=== PATIENT | male | born 1935 | race Hispanic/Latino ===

== ENCOUNTER 2020-06-24 23:54 | Inpatient (IN) | payer OTHER ==
[~2020-06-24] VITALS: Ht 157.5 cm; Wt 70.8 kg
[2020-06-25] MEDS ORDERED: DEXAMETHASONE SOD PHOS 10 MG/1 ML VIAL IV ONE (00:15)
[2020-06-25 00:16] LABS: BASOPHILS % 0.1 % (0.0-1.0); EOSINOPHILS % 0.2 % (0.0-6.0); HEMATOCRIT 28.6 % (38.2-49.6); HEMOGLOBIN 9.2 g/dL (14.0-18.0); LYMPHOCYTES # (AUTO) 0.8 (1.0-3.2); LYMPHOCYTES % 4.6 % (18.0-39.1); MEAN CORPUSCULAR HEMOGLOBIN 31.4 pg (28-32); MEAN CORPUSCULAR HGB CONC 32.2 g/dL (31-35); MEAN CORPUSCULAR VOLUME 97.6 fL (81-99); MONOCYTES # (AUTO) 0.3 (0.2-0.8); MONOCYTES % 1.5 % (4.4-11.3); NEUTROPHILS % 90.6 % (38.7-80.0); PLATELET COUNT 202 x10e3/uL (140-360); RED BLOOD COUNT 2.93 x10e6/uL (4.3-5.7); RED CELL DISTRIBUTION WIDTH 13.7 % (11.7-14.4)
[2020-06-25 00:34] LABS: ALBUMIN 2.4 g/dL (3.5-5.0); ALBUMIN/GLOBULIN RATIO 0.5 (0.8-2.0); ANION GAP 20.5 mmol/L (8-16); CALCIUM 8.1 mg/dL (8.4-10.2); CREATININE, SERUM 3.56 mg/dL (0.72-1.25); POTASSIUM 4.5 mmol/L (3.5-5.1)
[2020-06-25] MEDS ORDERED: CARVEDILOL12.5 MG PO (00:34)
[2020-06-25] MEDS ORDERED: OMEPRAZOLE40 MG PO (00:34)
[2020-06-25] MEDS ORDERED: FINASTERIDE5 MG PO (00:34)
[2020-06-25] MEDS ORDERED: FLOMAX0.4 MG PO (00:34)
[2020-06-25] MEDS ORDERED: FUROSEMIDE40 MG PO (00:34)
[2020-06-25] MEDS ORDERED: LOSARTAN POTASS25 MG PO (00:34)
[2020-06-25] MEDS ORDERED: NEURONTIN100 MG PO (00:34)
[2020-06-25] MEDS ORDERED: AMLODIPINE BESYL5 MG PO (00:34)
[2020-06-25] MEDS ORDERED: SIMVASTATIN40 MG PO (00:34)
[2020-06-25] MEDS ORDERED: LEVOTHYROXINE88 MCG PO (00:34)
[2020-06-25 00:38] LABS: B-TYPE NATRIURETIC PEPTIDE2 534.3 pg/mL (0-100)
[2020-06-25] MEDS ORDERED: AZITHROMYCIN 500MG/NS 250 ML 250 ML IV ONE (01:15)
[2020-06-25] MEDS ORDERED: ACETAMINOPHEN 325 MG TAB PO PRN (01:15)
[2020-06-25] MEDS ORDERED: CEFTRIAXONE SOD 1 GM/NS 50 ML 50 ML IV ONE (01:15)
[2020-06-25] MEDS: CEFTRIAXONE SOD 1 GM/NS 50 ML 50 ML IV SCH (01:30)
[2020-06-25] MEDS ORDERED: SODIUM CHLORIDE 0.9% 500ML 500 ML IV ONE (17:00)
[2020-06-25] MEDS: SODIUM BICARBONATE 650 MG TAB PO SCH (17:32)
[2020-06-25 17:47] LABS: CLARITY,URINE HAZY (CLEAR); COLOR,URINE YELLOW (YELLOW); KETONES,URINE NEGATIVE (NEGATIVE); LEUKOCYTE ESTERASE ,URINE SMALL (NEGATIVE); NITRITE,URINE NEGATIVE (NEGATIVE); PROTEIN,URINE DIPSTICK 2+ (NEGATIVE); URINE UROBILINOGEN 0.2 mg/dL (0.2 - 1)
[2020-06-25 17:59] LABS: BACTERIA,URINE MODERATE /HPF; EPITHELIAL CELLS,URINE FEW /LPF
[2020-06-25] MEDS ORDERED: ZOLPIDEM TARTRATE 5 MG TAB PO PRN (21:00)
[2020-06-25 22:00] VITALS: BP 123/58
[2020-06-25 23:00] VITALS: BP 111/75
[2020-06-25 23:13] VITALS: BP 123/58
[2020-06-26] VITALS (25 sets, daily range): BP systolic 84–166; BP diastolic 44–122
[2020-06-26] MEDS: AZITHROMYCIN 500MG/NS 250 ML 250 ML IV SCH ×2 (02:07→22:00)
[2020-06-26 05:09] LABS: BASOPHILS # (AUTO) 0.1 (0.0-0.1); BASOPHILS % 0.3 % (0.0-1.0); EOSINOPHILS # (AUTO) 0.1 (0.0-0.4); EOSINOPHILS % 0.5 % (0.0-6.0); HEMATOCRIT 28.5 % (38.2-49.6); HEMOGLOBIN 9.3 g/dL (14.0-18.0); LYMPHOCYTES # (AUTO) 0.8 (1.0-3.2); LYMPHOCYTES % 3.4 % (18.0-39.1); MEAN CORPUSCULAR HEMOGLOBIN 31.2 pg (28-32); MEAN CORPUSCULAR HGB CONC 32.6 g/dL (31-35); MEAN CORPUSCULAR VOLUME 95.6 fL (81-99); MONOCYTES # (AUTO) 0.6 (0.2-0.8); MONOCYTES % 2.3 % (4.4-11.3); NEUTROPHILS # (AUTO) 21.8 (2.1-6.9); NEUTROPHILS % 91.1 % (38.7-80.0); PLATELET COUNT 269 x10e3/uL (140-360); RED BLOOD COUNT 2.98 x10e6/uL (4.3-5.7); RED CELL DISTRIBUTION WIDTH 13.6 % (11.7-14.4)
[2020-06-26 05:27] LABS: ALBUMIN 2.2 g/dL (3.5-5.0); ALBUMIN/GLOBULIN RATIO 0.5 (0.8-2.0); ANION GAP 19.8 mmol/L (8-16); CALCIUM 8.3 mg/dL (8.4-10.2); POTASSIUM 4.8 mmol/L (3.5-5.1)
[2020-06-26] MEDS: LEVOTHYROXINE SODIUM 88 MCG TAB PO SCH (06:48)
[2020-06-26] MEDS: PANTOPRAZOLE SOD 40 MG TABEC PO SCH (08:07)
[2020-06-26] MEDS: DEXAMETHASONE SOD PHOS 10 MG/1 ML VIAL IV SCH (08:08)
[2020-06-26] MEDS: TAMSULOSIN HCL 0.4 MG CAP PO SCH (08:08)
[2020-06-26] MEDS: FINASTERIDE 5 MG TAB PO SCH (08:09)
[2020-06-26] MEDS: SODIUM BICARBONATE 650 MG TAB PO SCH ×2 (08:09→16:14)
[2020-06-26] MEDS: ENOXAPARIN 30 MG/0.3 ML SYR SC SCH (16:14)
[2020-06-26] MEDS: SODIUM BICARBONATE 8.4% 75 ML in SODIUM CHLORIDE 0.45% 1,000 ML IV SCH (16:14)
[2020-06-26] MEDS: CEFTRIAXONE SOD 1 GM/NS 50 ML 50 ML IV SCH (21:03)
[2020-06-27] VITALS (24 sets, daily range): BP systolic 118–180; BP diastolic 42–92
[2020-06-27] MEDS: SODIUM BICARBONATE 8.4% 75 ML in SODIUM CHLORIDE 0.45% 1,000 ML IV SCH ×2 (05:20→19:40)
[2020-06-27] MEDS: LEVOTHYROXINE SODIUM 88 MCG TAB PO SCH (06:00)
[2020-06-27] MEDS: FINASTERIDE 5 MG TAB PO SCH (08:05)
[2020-06-27] MEDS: TAMSULOSIN HCL 0.4 MG CAP PO SCH (08:05)
[2020-06-27] MEDS: PANTOPRAZOLE SOD 40 MG TABEC PO SCH (08:05)
[2020-06-27] MEDS: DEXAMETHASONE SOD PHOS 10 MG/1 ML VIAL IV SCH (08:05)
[2020-06-27] MEDS: SODIUM BICARBONATE 650 MG TAB PO SCH ×2 (08:05→15:11)
[2020-06-27 09:48] LABS: ABG HCO3 18 mmol/L (22-26); ABG PCO2 23 mmHg (35-45); ABG PH 7.51 (7.35-7.45); ABG PO2 56 mmHg (80-105); ABG TCO2 19
[2020-06-27] MEDS ORDERED: ZIPRASIDONE 20 MG VIAL IM NR (10:45)
[2020-06-27 11:41] LABS: BASOPHILS # (AUTO) 0.1 (0.0-0.1); BASOPHILS % 0.2 % (0.0-1.0); EOSINOPHILS # (AUTO) 0.1 (0.0-0.4); EOSINOPHILS % 0.6 % (0.0-6.0); HEMATOCRIT 30.6 % (38.2-49.6); HEMOGLOBIN 9.7 g/dL (14.0-18.0); LYMPHOCYTES # (AUTO) 0.5 (1.0-3.2); LYMPHOCYTES % 2.3 % (18.0-39.1); MEAN CORPUSCULAR HEMOGLOBIN 31.2 pg (28-32); MEAN CORPUSCULAR HGB CONC 31.7 g/dL (31-35); MEAN CORPUSCULAR VOLUME 98.4 fL (81-99); MONOCYTES # (AUTO) 0.8 (0.2-0.8); MONOCYTES % 3.7 % (4.4-11.3); PLATELET COUNT 308 x10e3/uL (140-360); RED BLOOD COUNT 3.11 x10e6/uL (4.3-5.7); RED CELL DISTRIBUTION WIDTH 13.7 % (11.7-14.4)
[2020-06-27 12:01] LABS: ALBUMIN 2.1 g/dL (3.5-5.0); ALBUMIN/GLOBULIN RATIO 0.4 (0.8-2.0); ANION GAP 19.6 mmol/L (8-16); CALCIUM 8.4 mg/dL (8.4-10.2); CREATININE, SERUM 2.52 mg/dL (0.72-1.25); POTASSIUM 4.6 mmol/L (3.5-5.1)
[2020-06-27] MEDS ORDERED: LORAZEPAM INJ 2 MG/ML VIAL IV NR (14:15)
[2020-06-27] MEDS ORDERED: DEXTROSE 5% 1,000 ML IV ONE (14:45)
[2020-06-27] MEDS: DEXMEDETOMIDINE HCL 200 MCG in SODIUM CHLORIDE 0.9% 50ML 48 ML IV SCH (14:48)
[2020-06-27] MEDS: ENOXAPARIN 30 MG/0.3 ML SYR SC SCH (15:11)
[2020-06-27] MEDS: CEFTRIAXONE SOD 1 GM/NS 50 ML 50 ML IV SCH (21:00)
[2020-06-27] MEDS: AZITHROMYCIN 500MG/NS 250 ML 250 ML IV SCH (22:10)
[2020-06-28] VITALS (25 sets, daily range): BP systolic 91–178; BP diastolic 42–98
[2020-06-28 05:09] LABS: BASOPHILS % 0.2 % (0.0-1.0); EOSINOPHILS # (AUTO) 0.1 (0.0-0.4); EOSINOPHILS % 0.4 % (0.0-6.0); HEMATOCRIT 30.7 % (38.2-49.6); HEMOGLOBIN 9.8 g/dL (14.0-18.0); LYMPHOCYTES # (AUTO) 0.6 (1.0-3.2); LYMPHOCYTES % 3.3 % (18.0-39.1); MEAN CORPUSCULAR HEMOGLOBIN 32.2 pg (28-32); MEAN CORPUSCULAR HGB CONC 31.9 g/dL (31-35); MONOCYTES # (AUTO) 0.7 (0.2-0.8); MONOCYTES % 3.9 % (4.4-11.3); NEUTROPHILS # (AUTO) 16.2 (2.1-6.9); NEUTROPHILS % 89.1 % (38.7-80.0); PLATELET COUNT 286 x10e3/uL (140-360); RED BLOOD COUNT 3.04 x10e6/uL (4.3-5.7); RED CELL DISTRIBUTION WIDTH 13.6 % (11.7-14.4)
[2020-06-28 05:39] LABS: ALBUMIN 2.1 g/dL (3.5-5.0); ALBUMIN/GLOBULIN RATIO 0.5 (0.8-2.0); ANION GAP 18.2 mmol/L (8-16); CALCIUM 8.3 mg/dL (8.4-10.2); CREATININE, SERUM 2.43 mg/dL (0.72-1.25); POTASSIUM 4.2 mmol/L (3.5-5.1)
[2020-06-28] MEDS: LEVOTHYROXINE SODIUM 88 MCG TAB PO SCH (06:00)
[2020-06-28] MEDS: PANTOPRAZOLE SOD 40 MG TABEC PO SCH (07:30)
[2020-06-28 08:48] LABS: ABG HCO3 18 mmol/L (22-26); ABG PCO2 29 mmHg (35-45); ABG PH 7.41 (7.35-7.45); ABG PO2 59 mmHg (80-105); ABG TCO2 19
[2020-06-28] MEDS: TAMSULOSIN HCL 0.4 MG CAP PO SCH (09:00)
[2020-06-28] MEDS: SODIUM BICARBONATE 650 MG TAB PO SCH ×2 (09:00→16:33)
[2020-06-28] MEDS: FINASTERIDE 5 MG TAB PO SCH (09:00)
[2020-06-28] MEDS: DEXAMETHASONE SOD PHOS 10 MG/1 ML VIAL IV SCH (09:56)
[2020-06-28] MEDS ORDERED: DEXTROSE 5% 1,000 ML IV ONE ×2 (11:00→22:41)
[2020-06-28] MEDS ORDERED: PIPERACILLIN/TAZO 2.25 GM 50 ML IV ONE (11:20)
[2020-06-28] MEDS: DEXMEDETOMIDINE HCL 200 MCG in SODIUM CHLORIDE 0.9% 50ML 48 ML IV SCH (13:42)
[2020-06-28] MEDS: PIPERACILLIN/TAZO 2.25 GM 50 ML IV SCH ×2 (13:42→22:30)
[2020-06-28] MEDS ORDERED: LORAZEPAM INJ 2 MG/ML VIAL ONE (15:51)
[2020-06-28] MEDS ORDERED: HALOPERIDOL LACTATE 5 MG/ML VIAL ONE (15:55)
[2020-06-28] MEDS: ENOXAPARIN 30 MG/0.3 ML SYR SC SCH (16:00)
[2020-06-28] MEDS ORDERED: HALOPERIDOL LACTATE 5 MG/ML VIAL IV ONE (16:45)
[2020-06-28] MEDS ORDERED: LORAZEPAM INJ 2 MG/ML VIAL IV ONE (16:45)
[2020-06-28] MEDS ORDERED: HEPARIN SOD (PORCINE) 1000 UNIT/ML SDV ONE (22:41)
[2020-06-28] MEDS ORDERED: SODIUM CHLORIDE 0.9% 1000ML 2,000 ML ONE (22:41)
[2020-06-29] VITALS (25 sets, daily range): BP systolic 102–179; BP diastolic 30–104
[2020-06-29] MEDS ORDERED: MANNITOL 25% 12.5GM/50ML 100 ML ONE (00:07)
[2020-06-29] MEDS: PIPERACILLIN/TAZO 2.25 GM 50 ML IV SCH ×3 (06:10→22:10)
[2020-06-29] MEDS: LEVOTHYROXINE SODIUM 88 MCG TAB PO SCH (06:10)
[2020-06-29] MEDS ORDERED: HEPARIN SOD (PORCINE) 1000 UNIT/ML SDV IV PRN (07:00)
[2020-06-29] MEDS ORDERED: MANNITOL 25% 12.5GM/50 ML VIAL IV PRN (07:00)
[2020-06-29] MEDS ORDERED: SODIUM CHLORIDE 0.9% 1000ML 2,000 ML IV PRN (07:00)
[2020-06-29] MEDS: PANTOPRAZOLE SOD 40 MG TABEC PO SCH (07:30)
[2020-06-29] MEDS: SODIUM BICARBONATE 650 MG TAB PO SCH (09:00)
[2020-06-29] MEDS: FINASTERIDE 5 MG TAB PO SCH (09:00)
[2020-06-29] MEDS: TAMSULOSIN HCL 0.4 MG CAP PO SCH (09:00)
[2020-06-29] MEDS: DEXAMETHASONE SOD PHOS 10 MG/1 ML VIAL IV SCH (10:00)
[2020-06-29 11:12] LABS: BASOPHILS # (AUTO) 0.1 (0.0-0.1); BASOPHILS % 0.3 % (0.0-1.0); EOSINOPHILS # (AUTO) 0.1 (0.0-0.4); EOSINOPHILS % 0.2 % (0.0-6.0); HEMATOCRIT 30.6 % (38.2-49.6); HEMOGLOBIN 9.8 g/dL (14.0-18.0); LYMPHOCYTES # (AUTO) 0.4 (1.0-3.2); LYMPHOCYTES % 1.5 % (18.0-39.1); MEAN CORPUSCULAR HEMOGLOBIN 31.1 pg (28-32); MONOCYTES # (AUTO) 0.7 (0.2-0.8); MONOCYTES % 2.8 % (4.4-11.3); NEUTROPHILS # (AUTO) 24.2 (2.1-6.9); NEUTROPHILS % 92.7 % (38.7-80.0); PLATELET COUNT 290 x10e3/uL (140-360); RED BLOOD COUNT 3.15 x10e6/uL (4.3-5.7); RED CELL DISTRIBUTION WIDTH 13.5 % (11.7-14.4)
[2020-06-29 11:24] LABS: MEAN CORPUSCULAR VOLUME 97.1 fL (81-99)
[2020-06-29 11:39] LABS: ALBUMIN/GLOBULIN RATIO 0.5 (0.8-2.0); ANION GAP 14.4 mmol/L (8-16); CALCIUM 7.5 mg/dL (8.4-10.2); CREATININE, SERUM 2.08 mg/dL (0.72-1.25); POTASSIUM 4.4 mmol/L (3.5-5.1)
[2020-06-29] MEDS: DEXMEDETOMIDINE HCL 200 MCG in SODIUM CHLORIDE 0.9% 50ML 48 ML IV SCH (14:15)
[2020-06-29] MEDS: PANTOPRAZOLE 40 MG 10ML VIAL IV SCH (14:29)
[2020-06-29] MEDS ORDERED: CALCIUM CHLORIDE 13.6 MEQ in SODIUM CHLORIDE 0.9% 100 ML 100 ML IV ONE (16:00)
[2020-06-29] MEDS: ENOXAPARIN 30 MG/0.3 ML SYR SC SCH (17:37)
[2020-06-29] MEDS ORDERED: DEXTROSE 5% 1,000 ML IV ONE (18:06)
[2020-06-29] MEDS ORDERED: AMIODARONE HCL 360MG 200 ML IV SCH (18:30)
[2020-06-29] MEDS ORDERED: AMIODARONE HCL 150MG 100 ML IV SCH (18:30)
[2020-06-29] MEDS ORDERED: AMIODARONE HCL 150 MG in DEXTROSE 5% 100ML 100 ML IV SCH (18:45)
[2020-06-29] MEDS: AMIODARONE 900MG 500 ML IV SCH (19:08)
[2020-06-30] VITALS (24 sets, daily range): BP systolic 105–159; BP diastolic 35–87
[2020-06-30] MEDS ORDERED: AMIODARONE HCL 360MG 200 ML IV SCH
[2020-06-30 05:51] LABS: BASOPHILS # (AUTO) 0.1 (0.0-0.1); BASOPHILS % 0.2 % (0.0-1.0); HEMATOCRIT 29.3 % (38.2-49.6); HEMOGLOBIN 9.6 g/dL (14.0-18.0); LYMPHOCYTES # (AUTO) 0.5 (1.0-3.2); LYMPHOCYTES % 1.7 % (18.0-39.1); MEAN CORPUSCULAR HEMOGLOBIN 31.9 pg (28-32); MEAN CORPUSCULAR HGB CONC 32.8 g/dL (31-35); MEAN CORPUSCULAR VOLUME 97.3 fL (81-99); MONOCYTES # (AUTO) 0.6 (0.2-0.8); MONOCYTES % 1.9 % (4.4-11.3); PLATELET COUNT 212 x10e3/uL (140-360); RED BLOOD COUNT 3.01 x10e6/uL (4.3-5.7); RED CELL DISTRIBUTION WIDTH 13.2 % (11.7-14.4)
[2020-06-30] MEDS: PIPERACILLIN/TAZO 2.25 GM 50 ML IV SCH ×2 (06:10→13:29)
[2020-06-30] MEDS ORDERED: DEXTROSE 5% 1,000 ML IV ONE (06:17)
[2020-06-30 06:25] LABS: ALBUMIN 1.7 g/dL (3.5-5.0); ALBUMIN/GLOBULIN RATIO 0.4 (0.8-2.0); ANION GAP 16.1 mmol/L (8-16); CREATININE, SERUM 1.54 mg/dL (0.72-1.25); POTASSIUM 4.1 mmol/L (3.5-5.1)
[2020-06-30 06:38] LABS: INR 1.12; PROTHROMBIN TIME 15.1 seconds (11.9-14.5)
[2020-06-30 06:39] LABS: PARTIAL THROMBOPLASTIN TIME 34.2 seconds (23.8-35.5)
[2020-06-30 07:30] LABS: CALCIUM 6.8 mg/dL (8.4-10.2)
[2020-06-30 08:16] LABS: BAND NEUTROPHILS % (MANUAL) 1 %; LYMPHOCYTES % (MANUAL) 1 % (19-48); MONOCYTES % (MANUAL) 1 % (3.4-9.0); NEUTROPHILS % (MANUAL) 97 % (40-74)
[2020-06-30] MEDS: DEXAMETHASONE SOD PHOS 10 MG/1 ML VIAL IV SCH (08:32)
[2020-06-30] MEDS: PANTOPRAZOLE 40 MG 10ML VIAL IV SCH (08:32)
[2020-06-30] MEDS: LEVOTHYROXINE SODIUM 100 MCG/VIAL IV SCH (08:32)
[2020-06-30] MEDS: AMIODARONE 900MG 500 ML IV SCH ×2 (09:40→18:20)
[2020-06-30] MEDS ORDERED: HEPARIN 25,000 UNIT 25,000 UNIT in DEXTROSE 5% 250ML 250 ML IV SCH (10:00)
[2020-06-30] MEDS ORDERED: LIDOCAINE HCL 1% LOCAL INJ 20 ML VIAL ONE (12:56)
[2020-06-30] MEDS: DEXMEDETOMIDINE HCL 200 MCG in SODIUM CHLORIDE 0.9% 50ML 48 ML IV SCH (14:15)
[2020-06-30] MEDS ORDERED: CALCIUM CHLORIDE 13.6 MEQ in SODIUM CHLORIDE 0.9% 100 ML 100 ML IV ONE ×2 (15:15→21:00)
[2020-06-30] MEDS: HEPARIN 25,000 UNIT 700 UNIT in DEXTROSE 5% 250ML 250 ML IV SCH (21:42)
[2020-07-01] VITALS (22 sets, daily range): BP systolic 94–150; BP diastolic 24–74
[2020-07-01] MEDS: PIPERACILLIN/TAZO 2.25 GM 50 ML IV SCH ×3 (01:16→13:05)
[2020-07-01 05:04] LABS: BASOPHILS # (AUTO) 0.1 (0.0-0.1); BASOPHILS % 0.4 % (0.0-1.0); HEMATOCRIT 29.8 % (38.2-49.6); HEMOGLOBIN 9.6 g/dL (14.0-18.0); LYMPHOCYTES # (AUTO) 0.5 (1.0-3.2); LYMPHOCYTES % 1.5 % (18.0-39.1); MEAN CORPUSCULAR HEMOGLOBIN 30.7 pg (28-32); MEAN CORPUSCULAR HGB CONC 32.2 g/dL (31-35); MEAN CORPUSCULAR VOLUME 95.2 fL (81-99); MONOCYTES % 2.7 % (4.4-11.3); NEUTROPHILS # (AUTO) 33.7 (2.1-6.9); NEUTROPHILS % 92.8 % (38.7-80.0); PLATELET COUNT 238 x10e3/uL (140-360); RED BLOOD COUNT 3.13 x10e6/uL (4.3-5.7); RED CELL DISTRIBUTION WIDTH 13.3 % (11.7-14.4)
[2020-07-01 05:24] LABS: INR 1.19; PROTHROMBIN TIME 15.9 seconds (11.9-14.5)
[2020-07-01 05:29] LABS: ALBUMIN 1.6 g/dL (3.5-5.0); ALBUMIN/GLOBULIN RATIO 0.4 (0.8-2.0); ANION GAP 20.5 mmol/L (8-16); CREATININE, SERUM 2.55 mg/dL (0.72-1.25); MAGNESIUM 1.7 MG/DL (1.3-2.1); PHOSPHORUS 4.9 MG/DL (2.3-4.7); POTASSIUM 4.5 mmol/L (3.5-5.1)
[2020-07-01 05:32] LABS: CALCIUM 6.4 mg/dL (8.4-10.2)
[2020-07-01 07:10] LABS: LYMPHOCYTES % (MANUAL) 1 % (19-48); MONOCYTES % (MANUAL) 4 % (3.4-9.0); NEUTROPHILS % (MANUAL) 95 % (40-74)
[2020-07-01 07:11] LABS: PLATELET ESTIMATE ADEQUATE; PLATELET MORPHOLOGY COMMENT NORMAL; RBC MORPHOLOGY COMMENT NORMAL
[2020-07-01] MEDS: LEVOTHYROXINE SODIUM 100 MCG/VIAL IV SCH (10:03)
[2020-07-01] MEDS: DEXAMETHASONE SOD PHOS 10 MG/1 ML VIAL IV SCH (10:03)
[2020-07-01] MEDS: PANTOPRAZOLE 40 MG 10ML VIAL IV SCH (10:03)
[2020-07-01] MEDS ORDERED: SODIUM CHLORIDE 0.9% 1000ML 1,000 ML IV ONE (10:15)
[2020-07-01] MEDS: DEXMEDETOMIDINE HCL 200 MCG in SODIUM CHLORIDE 0.9% 50ML 48 ML IV SCH (14:15)
[2020-07-01] MEDS ORDERED: CALCIUM CHLORIDE 13.6 MEQ in SODIUM CHLORIDE 0.9% 100 ML 100 ML IV ONE ×2 (14:30→21:00)
[2020-07-01] MEDS ORDERED: HEPARIN 25,000 UNIT 900 UNIT in DEXTROSE 5% 250ML 250 ML IV SCH (15:00)
[2020-07-01] MEDS ORDERED: HEPARIN 25,000 UNIT 700 UNIT in DEXTROSE 5% 250ML 250 ML IV SCH (15:00)
[2020-07-01] MEDS: AMIODARONE 900MG 500 ML IV SCH (16:00)
[2020-07-01] MEDS: HEPARIN 25,000 UNIT 700 UNIT in DEXTROSE 5% 250ML 250 ML IV SCH (20:00)
[2020-07-01 20:15] LABS: ABG HCO3 17 mmol/L (22-26); ABG PCO2 25 mmHg (35-45); ABG PH 7.43 (7.35-7.45); ABG PO2 63 mmHg (80-105); ABG TCO2 17
[2020-07-01] MEDS ORDERED: IOPAMIDOL 370 MG/ML 200 ML INFUS..BTL INJ ONE (21:11)
[2020-07-01] MEDS ORDERED: SODIUM CHLORIDE 0.9% 50ML 50 ML ONE (21:11)
[2020-07-02] VITALS (23 sets, daily range): BP systolic 85–146; BP diastolic 21–61
[2020-07-02] MEDS: HEPARIN 25,000 UNIT 700 UNIT in DEXTROSE 5% 250ML 250 ML IV SCH (00:16)
[2020-07-02] MEDS: PIPERACILLIN/TAZO 2.25 GM 50 ML IV SCH ×4 (01:01→21:57)
[2020-07-02] MEDS: PANTOPRAZOLE 40 MG 10ML VIAL IV SCH ×2 (01:30→14:23)
[2020-07-02] MEDS: AMIODARONE 900MG 500 ML IV SCH (02:23)
[2020-07-02] MEDS ORDERED: HYDROMORPHONE 20MG/ NS 100ML IV PRN (03:30)
[2020-07-02] MEDS ORDERED: HYDROMORPHONE 1MG/1ML INJ ONE (03:41)
[2020-07-02 05:55] LABS: BASOPHILS # (AUTO) 0.1 (0.0-0.1); BASOPHILS % 0.3 % (0.0-1.0); HEMATOCRIT 25.7 % (38.2-49.6); HEMOGLOBIN 8.3 g/dL (14.0-18.0); LYMPHOCYTES # (AUTO) 0.4 (1.0-3.2); LYMPHOCYTES % 1.3 % (18.0-39.1); MEAN CORPUSCULAR HEMOGLOBIN 31.9 pg (28-32); MEAN CORPUSCULAR HGB CONC 32.3 g/dL (31-35); MEAN CORPUSCULAR VOLUME 98.8 fL (81-99); MONOCYTES % 3.5 % (4.4-11.3); NEUTROPHILS # (AUTO) 27.2 (2.1-6.9); NEUTROPHILS % 91.7 % (38.7-80.0); PLATELET COUNT 203 x10e3/uL (140-360); RED CELL DISTRIBUTION WIDTH 13.5 % (11.7-14.4)
[2020-07-02 06:18] LABS: ALBUMIN 1.3 g/dL (3.5-5.0); ALBUMIN/GLOBULIN RATIO 0.4 (0.8-2.0); ANION GAP 16.8 mmol/L (8-16); CALCIUM 7.1 mg/dL (8.4-10.2); CREATININE, SERUM 2.44 mg/dL (0.72-1.25); POTASSIUM 4.8 mmol/L (3.5-5.1)
[2020-07-02 06:19] LABS: AMYLASE 181 U/L (25-125); LIPASE 42 U/L (8-78)
[2020-07-02] MEDS: METOCLOPRAMIDE HCL 10 MG/2ML VIAL IV SCH ×3 (06:36→17:23)
[2020-07-02 08:24] LABS: INR 1.19; PROTHROMBIN TIME 15.9 seconds (11.9-14.5)
[2020-07-02 08:25] LABS: PARTIAL THROMBOPLASTIN TIME 60.4 seconds (23.8-35.5)
[2020-07-02] MEDS: AMIODARONE HCL 200 MG TAB PO SCH ×2 (09:00→09:40)
[2020-07-02] MEDS: DEXAMETHASONE SOD PHOS 10 MG/1 ML VIAL IV SCH (09:36)
[2020-07-02] MEDS: LEVOTHYROXINE SODIUM 100 MCG/VIAL IV SCH (09:36)
[2020-07-02] MEDS ORDERED: HYDROMORPHONE 1MG/1ML INJ IV PRN (10:45)
[2020-07-02] MEDS: DEXMEDETOMIDINE HCL 200 MCG in SODIUM CHLORIDE 0.9% 50ML 48 ML IV SCH (14:15)
[2020-07-02] MEDS ORDERED: CALCIUM CHLORIDE 13.6 MEQ in SODIUM CHLORIDE 0.9% 100 ML 100 ML IV ONE ×2 (16:15→21:00)
[2020-07-03] VITALS (26 sets, daily range): BP systolic 103–140; BP diastolic 27–58
[2020-07-03] MEDS: METOCLOPRAMIDE HCL 10 MG/2ML VIAL IV SCH ×3 (00:30→12:32)
[2020-07-03] MEDS: PANTOPRAZOLE 40 MG 10ML VIAL IV SCH ×2 (01:30→12:32)
[2020-07-03 05:05] LABS: BASOPHILS # (AUTO) 0.1 (0.0-0.1); BASOPHILS % 0.4 % (0.0-1.0); HEMATOCRIT 24.8 % (38.2-49.6); HEMOGLOBIN 7.9 g/dL (14.0-18.0); LYMPHOCYTES # (AUTO) 0.4 (1.0-3.2); LYMPHOCYTES % 1.3 % (18.0-39.1); MEAN CORPUSCULAR HEMOGLOBIN 31.1 pg (28-32); MEAN CORPUSCULAR HGB CONC 31.9 g/dL (31-35); MEAN CORPUSCULAR VOLUME 97.6 fL (81-99); MONOCYTES # (AUTO) 1.5 (0.2-0.8); MONOCYTES % 5.2 % (4.4-11.3); NEUTROPHILS # (AUTO) 25.9 (2.1-6.9); NEUTROPHILS % 90.7 % (38.7-80.0); PLATELET COUNT 289 x10e3/uL (140-360); RED BLOOD COUNT 2.54 x10e6/uL (4.3-5.7); RED CELL DISTRIBUTION WIDTH 13.7 % (11.7-14.4)
[2020-07-03 05:21] LABS: ALBUMIN 1.4 g/dL (3.5-5.0); ALBUMIN/GLOBULIN RATIO 0.4 (0.8-2.0); ANION GAP 20.3 mmol/L (8-16); CALCIUM 7.1 mg/dL (8.4-10.2); CREATININE, SERUM 3.43 mg/dL (0.72-1.25); POTASSIUM 5.3 mmol/L (3.5-5.1)
[2020-07-03 05:23] LABS: PHOSPHORUS 8.4 MG/DL (2.3-4.7)
[2020-07-03 05:37] LABS: % IRON SATURATION 18 % (15-50); AMYLASE 109 U/L (25-125); IRON 22 ug/dL (65-175); LIPASE 23 U/L (8-78); TOTAL IRON BINDING CAPACITY 125 ug/dL (261-478); TRANSFERRIN 89 mg/dL (174-364)
[2020-07-03] MEDS: PIPERACILLIN/TAZO 2.25 GM 50 ML IV SCH ×3 (06:16→21:34)
[2020-07-03] MEDS: LEVOTHYROXINE SODIUM 100 MCG/VIAL IV SCH (09:36)
[2020-07-03 09:55] LABS: ABG HCO3 16 mmol/L (22-26); ABG PCO2 29 mmHg (35-45); ABG PH 7.35 (7.35-7.45); ABG PO2 65 mmHg (80-105); ABG TCO2 17
[2020-07-03] MEDS: AMIODARONE HCL 900 MG in DEXTROSE 5% 500ML 500 ML IV SCH (10:17)
[2020-07-03] MEDS: DEXMEDETOMIDINE HCL 200 MCG in SODIUM CHLORIDE 0.9% 50ML 48 ML IV SCH (11:56)
[2020-07-04] VITALS (24 sets, daily range): BP systolic 78–146; BP diastolic 21–77
[2020-07-04] MEDS: PANTOPRAZOLE 40 MG 10ML VIAL IV SCH ×2 (01:24→13:17)
[2020-07-04 06:04] LABS: BASOPHILS # (AUTO) 0.1 (0.0-0.1); BASOPHILS % 0.4 % (0.0-1.0); EOSINOPHILS % 0.1 % (0.0-6.0); HEMOGLOBIN 7.8 g/dL (14.0-18.0); LYMPHOCYTES # (AUTO) 0.4 (1.0-3.2); LYMPHOCYTES % 1.7 % (18.0-39.1); MEAN CORPUSCULAR HEMOGLOBIN 30.5 pg (28-32); MEAN CORPUSCULAR HGB CONC 31.2 g/dL (31-35); MEAN CORPUSCULAR VOLUME 97.7 fL (81-99); MONOCYTES # (AUTO) 1.3 (0.2-0.8); MONOCYTES % 5.4 % (4.4-11.3); NEUTROPHILS # (AUTO) 21.8 (2.1-6.9); NEUTROPHILS % 89.6 % (38.7-80.0); PLATELET COUNT 291 x10e3/uL (140-360); RED BLOOD COUNT 2.56 x10e6/uL (4.3-5.7); RED CELL DISTRIBUTION WIDTH 13.7 % (11.7-14.4)
[2020-07-04] MEDS: PIPERACILLIN/TAZO 2.25 GM 50 ML IV SCH ×3 (06:05→22:13)
[2020-07-04 06:24] LABS: ALBUMIN 1.3 g/dL (3.5-5.0); ALBUMIN/GLOBULIN RATIO 0.3 (0.8-2.0); ANION GAP 20.2 mmol/L (8-16); CALCIUM 7.1 mg/dL (8.4-10.2); CREATININE, SERUM 2.49 mg/dL (0.72-1.25); POTASSIUM 4.2 mmol/L (3.5-5.1)
[2020-07-04 06:40] LABS: AMYLASE 101 U/L (25-125); LIPASE 20 U/L (8-78)
[2020-07-04] MEDS: LEVOTHYROXINE SODIUM 100 MCG/VIAL IV SCH (08:26)
[2020-07-04] MEDS: AMIODARONE HCL 900 MG in DEXTROSE 5% 500ML 500 ML IV SCH (09:00)
[2020-07-04] MEDS: IRON SUCROSE 100 MG in SODIUM CHLORIDE 0.9% 100 ML 100 ML IV SCH (09:21)
[2020-07-04] MEDS ORDERED: MIDAZOLAM HCL 5MG/ML 10ML VIAL 100 ML BAG IV ONE (10:29)
[2020-07-04] MEDS ORDERED: FENTANYL 2,000 MCG/250 ML BAG ONE (10:29)
[2020-07-04] MEDS ORDERED: ENOXAPARIN 30 MG/0.3 ML SYR SC SCH (17:00)
[2020-07-04] MEDS: FENTANYL 2000MCG/NS 250 250 ML IV SCH (18:45)
[2020-07-04] MEDS ORDERED: MIDAZOLAM HCL 5MG/ML 10ML VIAL 100 ML IV PRN (18:45)
[2020-07-04] MEDS: CENTRAL TPN FORMULA 1 BAG IV SCH (20:00)
[2020-07-04] MEDS ORDERED: ALBUMIN 25% 25GM 100ML 0.25 GM/ML BTL IV ONE (21:30)
[2020-07-04] MEDS ORDERED: NOREPINEPHRINE INJ 4MG/4ML 8 MG in DEXTROSE 5% 250ML 250 ML IV PRN (21:30)
[2020-07-04 21:46] LABS: ABG HCO3 22 mmol/L (22-26); ABG PCO2 39 mmHg (35-45); ABG PH 7.35 (7.35-7.45); ABG PO2 77 mmHg (80-105); ABG TCO2 23
[2020-07-05] VITALS (19 sets, daily range): BP systolic 91–133; BP diastolic 44–68
[2020-07-05] MEDS: PANTOPRAZOLE 40 MG 10ML VIAL IV SCH ×2 (01:07→14:42)
[2020-07-05] MEDS: PIPERACILLIN/TAZO 2.25 GM 50 ML IV SCH ×3 (05:47→22:32)
[2020-07-05 06:14] LABS: BASOPHILS % 0.2 % (0.0-1.0); EOSINOPHILS % 0.2 % (0.0-6.0); LYMPHOCYTES # (AUTO) 0.5 (1.0-3.2); LYMPHOCYTES % 2.6 % (18.0-39.1); MEAN CORPUSCULAR HEMOGLOBIN 30.5 pg (28-32); MEAN CORPUSCULAR HGB CONC 29.8 g/dL (31-35); MEAN CORPUSCULAR VOLUME 102.3 fL (81-99); MONOCYTES # (AUTO) 0.9 (0.2-0.8); MONOCYTES % 4.8 % (4.4-11.3); NEUTROPHILS # (AUTO) 16.8 (2.1-6.9); NEUTROPHILS % 90.2 % (38.7-80.0); PLATELET COUNT 258 x10e3/uL (140-360); RED BLOOD COUNT 2.13 x10e6/uL (4.3-5.7); RED CELL DISTRIBUTION WIDTH 14.1 % (11.7-14.4)
[2020-07-05 06:27] LABS: HEMOGLOBIN 6.5 g/dL (14.0-18.0)
[2020-07-05 06:28] LABS: HEMATOCRIT 21.8 % (38.2-49.6)
[2020-07-05 06:37] LABS: ALBUMIN 2.2 g/dL (3.5-5.0); ALBUMIN/GLOBULIN RATIO 0.7 (0.8-2.0); ANION GAP 20.7 mmol/L (8-16); CALCIUM 7.5 mg/dL (8.4-10.2); CREATININE, SERUM 3.63 mg/dL (0.72-1.25); POTASSIUM 4.7 mmol/L (3.5-5.1)
[2020-07-05] MEDS ORDERED: SODIUM CHLORIDE 0.9% 250ML 250 ML IV ONE (07:00)
[2020-07-05] MEDS: AMIODARONE HCL 900 MG in DEXTROSE 5% 500ML 500 ML IV SCH (09:00)
[2020-07-05] MEDS: IRON SUCROSE 100 MG in SODIUM CHLORIDE 0.9% 100 ML 100 ML IV SCH (09:16)
[2020-07-05] MEDS: LEVOTHYROXINE SODIUM 100 MCG/VIAL IV SCH (10:42)
[2020-07-05] MEDS ORDERED: ALBUMIN 25% 25GM 100ML 0.25 GM/ML BTL IV ONE (12:15)
[2020-07-05] MEDS: FENTANYL 2000MCG/NS 250 250 ML IV SCH (18:45)
[2020-07-05] MEDS: CENTRAL TPN FORMULA 1 BAG IV SCH (20:15)
[2020-07-06] VITALS (21 sets, daily range): BP systolic 66–138; BP diastolic 38–80
[2020-07-06] MEDS: PANTOPRAZOLE 40 MG 10ML VIAL IV SCH ×2 (01:02→12:52)
[2020-07-06] MEDS: AMIODARONE HCL 900 MG in DEXTROSE 5% 500ML 500 ML IV SCH (01:50)
[2020-07-06 05:37] LABS: BASOPHILS # (AUTO) 0.1 (0.0-0.1); BASOPHILS % 0.4 % (0.0-1.0); EOSINOPHILS % 0.2 % (0.0-6.0); HEMOGLOBIN 8.5 g/dL (14.0-18.0); LYMPHOCYTES # (AUTO) 0.3 (1.0-3.2); LYMPHOCYTES % 1.8 % (18.0-39.1); MEAN CORPUSCULAR HEMOGLOBIN 29.9 pg (28-32); MEAN CORPUSCULAR HGB CONC 31.5 g/dL (31-35); MEAN CORPUSCULAR VOLUME 95.1 fL (81-99); MONOCYTES # (AUTO) 0.6 (0.2-0.8); NEUTROPHILS # (AUTO) 17.3 (2.1-6.9); NEUTROPHILS % 92.5 % (38.7-80.0); PLATELET COUNT 250 x10e3/uL (140-360); RED BLOOD COUNT 2.84 x10e6/uL (4.3-5.7); RED CELL DISTRIBUTION WIDTH 16.1 % (11.7-14.4)
[2020-07-06] MEDS: LEVOTHYROXINE SODIUM 100 MCG/VIAL IV SCH (05:51)
[2020-07-06] MEDS: PIPERACILLIN/TAZO 2.25 GM 50 ML IV SCH ×3 (05:51→22:11)
[2020-07-06 06:18] LABS: ALBUMIN 2.5 g/dL (3.5-5.0); ALBUMIN/GLOBULIN RATIO 0.8 (0.8-2.0); ANION GAP 18.4 mmol/L (8-16); CREATININE, SERUM 2.28 mg/dL (0.72-1.25); POTASSIUM 3.4 mmol/L (3.5-5.1)
[2020-07-06] MEDS: IRON SUCROSE 100 MG in SODIUM CHLORIDE 0.9% 100 ML 100 ML IV SCH (09:43)
[2020-07-06 15:48] LABS: ABG PCO2 82 mmHg (35-45); ABG PH 7.17 (7.35-7.45)
[2020-07-06 15:49] LABS: ABG HCO3 30 mmol/L (22-26); ABG PO2 48 mmHg (80-105); ABG TCO2 32
[2020-07-06] MEDS ORDERED: VASOPRESSIN 60 UNIT in DEXTROSE 5% 50ML 57 ML IV SCH (16:15)
[2020-07-06] MEDS: FENTANYL 2000MCG/NS 250 250 ML IV SCH (18:45)
[2020-07-06] MEDS ORDERED: PHENYLEPHRINE 10MG/ML VIAL 40 MG in DEXTROSE 5% 250ML 246 ML IV SCH (19:30)
[2020-07-06] MEDS: CENTRAL TPN FORMULA 1 BAG IV SCH (20:00)
[2020-07-06] MEDS: DOBUtamine HCL 500MG/D5W 250ML 250 ML IV SCH (20:42)
[2020-07-07] VITALS (20 sets, daily range): BP systolic 75–131; BP diastolic 39–65
[2020-07-07] MEDS: PANTOPRAZOLE 40 MG 10ML VIAL IV SCH ×2 (01:12→14:02)
[2020-07-07] MEDS: DOBUtamine HCL 500MG/D5W 250ML 250 ML IV SCH ×2 (01:13→06:42)
[2020-07-07] MEDS: PIPERACILLIN/TAZO 2.25 GM 50 ML IV SCH ×2 (05:44→14:02)
[2020-07-07] MEDS ORDERED: DOBUtamine HCL 500MG/D5W 250ML 250 ML IV ONE (06:38)
[2020-07-07] MEDS: LEVOTHYROXINE SODIUM 100 MCG/VIAL IV SCH (08:14)
[2020-07-07] MEDS: IRON SUCROSE 100 MG in SODIUM CHLORIDE 0.9% 100 ML 100 ML IV SCH (08:14)
== END 2020-07-07 18:57 | disposition expired | DRG 871 ==
LOC: ER 06-25 00:30 → ERHOLD 06-25 01:04 → ICU 06-25 20:18 → COVIDICU 06-28 20:33 → IMCU 07-07 18:56 → UNDODISIN 07-08 05:44
PROVIDERS: ADMIT Internal Medicine; ATTEND Internal Medicine
PROC: 02HV33Z Insertion of Infusion Device into Superior Vena Cava, Percutaneous Approach (ICD-10-PCS; principal; 2020-06-28)
PROC: B548ZZA Ultrasonography of Superior Vena Cava, Guidance (ICD-10-PCS; 2020-06-28)
PROC: 0F9430Z Drainage of Gallbladder with Drainage Device, Percutaneous Approach (ICD-10-PCS; 2020-06-28)
PROC: 0F9430Z Drainage of Gallbladder with Drainage Device, Percutaneous Approach (ICD-10-PCS; 2020-06-29)
PROC: 5A1D70Z Performance of Urinary Filtration, Intermittent, Less than 6 Hours Per Day (ICD-10-PCS; 2020-06-29)
PROC: 5A1D70Z Performance of Urinary Filtration, Intermittent, Less than 6 Hours Per Day (ICD-10-PCS; 2020-07-01)
PROC: 5A1D70Z Performance of Urinary Filtration, Intermittent, Less than 6 Hours Per Day (ICD-10-PCS; 2020-07-03)
PROC: 5A1D70Z Performance of Urinary Filtration, Intermittent, Less than 6 Hours Per Day (ICD-10-PCS; 2020-07-04)
PROC: 02HV33Z Insertion of Infusion Device into Superior Vena Cava, Percutaneous Approach (ICD-10-PCS; 2020-07-05)
PROC: B548ZZA Ultrasonography of Superior Vena Cava, Guidance (ICD-10-PCS; 2020-07-05)
PROC: 5A1D70Z Performance of Urinary Filtration, Intermittent, Less than 6 Hours Per Day (ICD-10-PCS; 2020-07-05)
PROC: 30233N1 Transfusion of Nonautologous Red Blood Cells into Peripheral Vein, Percutaneous Approach (ICD-10-PCS; 2020-07-05)
PROC: 5A1945Z Respiratory Ventilation, 24-96 Consecutive Hours (ICD-10-PCS; 2020-07-06)
PROC: 0BH17EZ Insertion of Endotracheal Airway into Trachea, Via Natural or Artificial Opening (ICD-10-PCS; 2020-07-06)
PROC: 3E043XZ Introduction of Vasopressor into Central Vein, Percutaneous Approach (ICD-10-PCS; 2020-07-06)
PROC: 5A12012 Performance of Cardiac Output, Single, Manual (ICD-10-PCS; 2020-07-06)
DX: A41.89 Other specified sepsis (principal); U07.1 COVID-19; J12.82 Pneumonia due to coronavirus disease 2019; J96.01 Acute respiratory failure with hypoxia; K85.90 Acute pancreatitis without necrosis or infection, unspecified; N17.9 Acute kidney failure, unspecified; N18.4 Chronic kidney disease, stage 4 (severe); E87.0 Hyperosmolality and hypernatremia; E87.2 Acidosis; N39.0 Urinary tract infection, site not specified; K80.00 Calculus of gallbladder with acute cholecystitis without obstruction; R65.20 Severe sepsis without septic shock; I12.9 Hypertensive chronic kidney disease with stage 1 through stage 4 chronic kidney disease, or unspecified chronic kidney disease; D64.9 Anemia, unspecified; E03.9 Hypothyroidism, unspecified; N40.0 Benign prostatic hyperplasia without lower urinary tract symptoms; E78.5 Hyperlipidemia, unspecified; Z90.5 Acquired absence of kidney; E83.51 Hypocalcemia; N28.1 Cyst of kidney, acquired; E66.9 Obesity, unspecified; I48.0 Paroxysmal atrial fibrillation; I46.9 Cardiac arrest, cause unspecified
CPT/HCPCS: 31500; 36415; 36600; 49405; 70450; 71045; 71260; 74018; 74177; 74470; 76700; 76770; 76942; 80053; 81001; 82140; 82150; 82607; 82746; 82805; 82948; 83540; 83605; 83690; 83735; 83880; 84100; 84466; 84484; 85025; 85045; 85610; 85730; 86677; 86704; 86706; 86850; 86900; 86920; 87040; 87071; 87205; 92950; 93005; 93306; 94002; 94003; 94660; 96365; 96366; 99285; J0456; J0696; J1100; J1170; J1250; J1630; J1644; J1650; J1756; J2001; J2060; J2150; J2370; J2543; J2765; J3486; J7030; J7040; J7050; J7060; J7070; P9016; P9047; Q9967; U0002